=== PATIENT | female | born 1940 | race Caucasian/White ===

== ENCOUNTER 2016-11-26 14:23 | Emergency (ER) | payer OTHER ==
[~2016-11-26] VITALS: Ht 170.2 cm; Wt 68.5 kg
--- NOTE | 2016-11-26 14:25 | NUR ---
HERB FROM HOME DT NEAR SYNCOPAL EPISODE. PATIENT RECEIVED,AAO4. APPEARS IN NO APPARENT DISTRESS. RESPIRATION EVEN AND UNLABORED. SKIN IS WARM TO TOUCH AND NON DIAPHORETIC. PATIENT IS AFEBRILE. VSS. GOWNED PATIENT AND PLACED ON TELE MONITOR. IV ACCESSED TO RIGHT WRIST 18 NOTED INTACT
[2016-11-26] MEDS ORDERED: IV SET PRIMARY 1 EA INFUS.SET MC ONE (14:46)
[2016-11-26] MEDS ORDERED: IV NS 0.9% 1,000 ML ONE (14:46)
[2016-11-26] MEDS ORDERED: IV NS 0.9% 1,000 ML BAG IV ONE (15:00)
[2016-11-26 15:07] LABS: BASOPHILS % (AUTO) 0.6 % (0.0-2.0); EOSINOPHILS # (AUTO) 0.1 /CMM (0.0-0.7); EOSINOPHILS % (AUTO) 2.3 % (0.0-6.0); HEMATOCRIT 37 % (33-45); HEMOGLOBIN 12.7 g/dL (11.5-14.8); LYMPHOCYTES # (AUTO) 1.9 /CMM (0.8-4.8); LYMPHOCYTES % (AUTO) 36.6 % (20.0-44.0); MEAN CORPUSCULAR HEMOGLOBIN 32 PG (26.0-33.0); MEAN CORPUSCULAR HGB CONC 35 g/dl (31.0-36.0); MEAN CORPUSCULAR VOLUME 93 fL (82-100); MONOCYTES # (AUTO) 0.4 /CMM (0.1-1.30); NEUTROPHILS # (AUTO) 2.7 /CMM (1.8-8.9); NEUTROPHILS % (AUTO) 52.5 % (43.0-81.0); PLATELET COUNT (AUTO) 191 /CMM (150-450); RDW COEFFICIENT OF VARIATION 13.3 (11.5-15.0); RED BLOOD CELL COUNT(AUTO) 3.93 MIL/uL (4.0-5.2); WHITE BLOOD COUNT (AUTO) 5.1 K/uL (4.3-11.0)
[2016-11-26 15:17] LABS: CALCIUM, SERUM 8.9 mg/dL (8.5-10.1); CARBON DIOXIDE 29 mmol/L (21-32); CHLORIDE 108 mmol/L (98-107); CREATININE 0.9 mg/dL (0.6-1.3); GLUCOSE 128 mg/dL (74-106); POTASSIUM 3.9 mmol/L (3.5-5.1); SODIUM SERUM 142 mmol/L (136-145); UREA NITROGEN, BLOOD 24 mg/dL (7-18)
[2016-11-26 15:19] LABS: INR 0.99 (0.87-1.13); PROTHROMBIN TIME 10.3 SECS (9.5-12.7)
[2016-11-26 15:25] LABS: TROPONIN I < 0.017 ng/mL (0.00-0.056)
[2016-11-26 15:28] LABS: ALANINE AMINOTRANSFERASE 13 U/L (12-78); ALBUMIN 3.5 g/dL (3.4-5.0); ALKALINE PHOSPHATASE 62 U/L (46-116); ASPARTATE AMINOTRANSFERASE 29 U/L (15-37); BILIRUBIN,DIRECT 0.1 mg/dL (0.0-0.2); BILIRUBIN,TOTAL 0.4 mg/dL (0.2-1.0); TOTAL PROTEIN, SERUM 6.5 g/dL (6.4-8.2)
[2016-11-26 16:09] LABS: APPEARANCE,URINE Clear (CLEAR); BILIRUBIN,URINE Negative (NEGATIVE); BLOOD, URINE Negative Ery/uL (NEGATIVE); COLOR,URINE Yellow (YELLOW); KETONES,URINE Negative (NEGATIVE); LEUKOCYTE ESTERASE ,URINE Negative (NEGATIVE); NITRITE, URINE Negative (NEGATIVE); PH,URINE 7.5 (5.0-8.0); PROTEIN,URINE Trace mg/dl (NEGATIVE); UGLUCOSE Negative (NEGATIVE); UROBILINOGEN,URINE 0.2 EU/dL (0.2)
--- NOTE | 2016-11-26 16:12 | NUR ---
CALLED [facility] NOTIFIED RAIL OPERATOR THAT ER PHYSICIAN IS READY TO PRESENT CASE TO [facility] MORENO
[2016-11-26 16:19] VITALS: BP 119/65
[2016-11-26 16:44] LABS: BACTERIA,URINE None seen /HPF (None Seen); RBC,URINE 0-2 /HPF (0-2); SQUAMOUS EPITHELIAL CELL,UR Few /HPF (None Seen); WBC,URINE 0-2 /HPF (0-3)
--- NOTE | 2016-11-26 17:03 | NUR ---
RECIEVED A CALL FROM [place] ETA FOR ALS TRANSPORTATION 1750, BEING TRANSFERRED TO [facility], ACCEPTED BY DR HUANG
--- NOTE | 2016-11-26 17:16 | NUR ---
[phone]-- [facility] dtr
--- NOTE | 2016-11-26 18:07 | NUR ---
PATIENT WAS PICKED UP BY [facility]. VSS.
== END 2016-11-26 18:10 | disposition short-term general hospital (02) ==
LOC: ER 14:26
DX: R55 Syncope and collapse (principal); E11.9 Type 2 diabetes mellitus without complications; Z88.1 Allergy status to other antibiotic agents
CPT/HCPCS: 36415; 70450-TC; 71010-TC; 80048-TC; 80076-TC; 81000-TC; 84484-TC; 85025-TC; 85730-TC; A4606; J7030; Z7610

== ENCOUNTER 2016-12-24 14:24 | Emergency (ER) | payer OTHER ==
[~2016-12-24] VITALS: Ht 170.2 cm; Wt 64.0 kg
[2016-12-24 14:57] LABS: BASOPHILS % (AUTO) 0.5 % (0.0-2.0); EOSINOPHILS # (AUTO) 0.1 /CMM (0.0-0.7); EOSINOPHILS % (AUTO) 1.7 % (0.0-6.0); HEMATOCRIT 37 % (33-45); HEMOGLOBIN 12.6 g/dL (11.5-14.8); LYMPHOCYTES # (AUTO) 1.7 /CMM (0.8-4.8); LYMPHOCYTES % (AUTO) 32.9 % (20.0-44.0); MEAN CORPUSCULAR HEMOGLOBIN 32 PG (26.0-33.0); MEAN CORPUSCULAR HGB CONC 34 g/dl (31.0-36.0); MEAN CORPUSCULAR VOLUME 95 fL (82-100); MONOCYTES # (AUTO) 0.4 /CMM (0.1-1.30); MONOCYTES % (AUTO) 8.2 % (2.0-12.0); NEUTROPHILS # (AUTO) 3.1 /CMM (1.8-8.9); NEUTROPHILS % (AUTO) 56.7 % (43.0-81.0); PLATELET COUNT (AUTO) 182 /CMM (150-450); RDW COEFFICIENT OF VARIATION 13.9 (11.5-15.0); RED BLOOD CELL COUNT(AUTO) 3.93 MIL/uL (4.0-5.2); WHITE BLOOD COUNT (AUTO) 5.3 K/uL (4.3-11.0)
[2016-12-24 15:08] LABS: CARBON DIOXIDE 31 mmol/L (21-32); CHLORIDE 107 mmol/L (98-107); CREATININE 0.9 mg/dL (0.6-1.3); GLUCOSE 98 mg/dL (74-106); POTASSIUM 3.8 mmol/L (3.5-5.1); SODIUM SERUM 141 mmol/L (136-145); UREA NITROGEN, BLOOD 20 mg/dL (7-18)
[2016-12-24 15:11] LABS: INR 0.94 (0.87-1.13); PROTHROMBIN TIME 9.8 SECS (9.5-12.7)
[2016-12-24 15:13] LABS: ALANINE AMINOTRANSFERASE 12 U/L (12-78); ALBUMIN 3.3 g/dL (3.4-5.0); ALKALINE PHOSPHATASE 66 U/L (46-116); ASPARTATE AMINOTRANSFERASE 22 U/L (15-37); BILIRUBIN,DIRECT 0.1 mg/dL (0.0-0.2); BILIRUBIN,TOTAL 0.4 mg/dL (0.2-1.0); TOTAL PROTEIN, SERUM 6.3 g/dL (6.4-8.2)
[2016-12-24 15:15] LABS: TROPONIN I < 0.017 ng/mL (0.00-0.056)
--- NOTE | 2016-12-24 15:30 | NUR ---
PATIENT BIB RA D/T PATIENT C/O PALPITATIONS AND BEING LIGHTHEADED. PER RA, PATIENT SEEN TO GO IN AND OUT OF A-FIB. PATIENT IS A/OX 4. BREATHING EVEN AND UNLABORED. STATING SHE FEELS WEAK, BUT PATIENT'S VITALS ARE STABLE. SAFETY AND COMFORT MEASURES IN PLACE, AWAITING MD ORDERS.
[2016-12-24] MEDS ORDERED: ASPIRIN 81 MG TAB.CHEW PO ONE (16:30)
[2016-12-24] MEDS ORDERED: IV NS 0.9% 500 ML BAG IV ONE (16:30)
[2016-12-24] MEDS ORDERED: ASPIRIN 81 MG TAB.CHEW ONE (16:42)
--- NOTE | 2016-12-24 16:50 | NUR ---
PER PATIENT, SHE HAS TAKEN ASPIRIN 325MG THIS AM. INFORMED AND HAS CANCELLED ORDERD FOR ASPIRIN 162MG.
--- NOTE | 2016-12-24 17:05 | NUR ---
PT GOING TO [facility]. NUMBER TO CALL REPORT [phone] ACCEPTING MD DR CONTRERAS. ALS ETA 1 HOUR.
--- NOTE | 2016-12-24 17:36 | NUR ---
REPORT GIVEN TO DANIKA CASTELLANOS AT [facility] FOR TRANSFER.
[2016-12-24 17:51] VITALS: BP 137/74
--- NOTE | 2016-12-24 18:05 | NUR ---
EMT AT BEDSIDE, REPORT GIVEN. PATIENT TRANSFERRED TO [facility] IN STABLE CONDITION.
== END 2016-12-24 18:10 | disposition short-term general hospital (02) ==
LOC: ER 14:26
DX: I49.9 Cardiac arrhythmia, unspecified (principal); R79.89 Other specified abnormal findings of blood chemistry; E11.9 Type 2 diabetes mellitus without complications; E78.00 Pure hypercholesterolemia, unspecified; I48.91 Unspecified atrial fibrillation; I70.0 Atherosclerosis of aorta; Z79.82 Long term (current) use of aspirin
CPT/HCPCS: 36415; 71010; 80048; 80076; 84484; 85025; 85730; 93005; 99285; A4606; J7040 ×2; Z7610

== ENCOUNTER 2021-06-15 17:43 | Inpatient (IN) | payer OTHER ==
[~2021-06-15] VITALS: Ht 170.2 cm; Wt 64.9 kg
--- NOTE | 2021-06-15 17:55 | NUR ---
PT BIBRA FROM HOME TO ER BED 16 C/O L HIP PAIN S/P SLIP AND FALL AT HOME. PT DENIES HEAD TRAUMA. + SHORTENING NOTED UPON ARRIVAL. 100MCG FENTANYL GIVEN AEROBICS INSTRUCTOR. PT GOWNED AND PLACED ON MONITOR. AWAITING MD WRIGHT.
--- NOTE | 2021-06-15 18:05 | NUR ---
DR BELTRE AT BEDSIDE FOR EVAL.
--- NOTE | 2021-06-15 18:08 | NUR ---
RADIOLOGY AT BEDSIDE FOR L HIP AND CHEST XRAY.
--- NOTE | 2021-06-15 18:21 | NUR ---
SUPERVISOR RIPRAP PLACING AT BEDSIDE FOR BLOOD DRAW.
--- NOTE | 2021-06-15 18:23 | NUR ---
CALLED [facility] AND THEY WERE NOTIFIED OF PT STATUS. WAITING FOR CALL BACK TO SPEAK TO DR. BELTRE
--- NOTE | 2021-06-15 18:29 | NUR ---
DR BELTRE TALKING TO [facility] MORENO.
[2021-06-15 18:53] LABS: CALCIUM, SERUM 8.8 mg/dL (8.5-10.1)
[2021-06-15] MEDS ORDERED: ONDANSETRON HCL/PF 4 MG/2 ML VIAL IVP PRN (19:00)
[2021-06-15] MEDS ORDERED: Z GUARD REMEDY 4 OZ OINT TP PRN (19:00)
[2021-06-15] MEDS ORDERED: TEMAZEPAM 15 MG CAPSULE PO PRN (19:00)
[2021-06-15] MEDS ORDERED: ENOXAPARIN SODIUM 40 MG/0.4 ML DISP.SYRIN SQ SCH (19:00)
[2021-06-15] MEDS ORDERED: LORAZEPAM INJ 2 MG/ML VIAL IV PRN (19:00)
[2021-06-15] MEDS ORDERED: MAGNESIUM HYDROXIDE 30 ML UDC PO PRN (19:00)
--- NOTE | 2021-06-15 19:20 | NUR ---
soledad sanders approved to give morphine 4mg iv x 1 stat.
[2021-06-15] MEDS ORDERED: MORPHINE SULFATE INJ 4 MG/ML DISP.SYRIN ONE (19:23)
--- NOTE | 2021-06-15 19:30 | NUR ---
ORTHO MD AT BEDSIDE W/ PATIENT
[2021-06-15] MEDS: MORPHINE SULFATE INJ 2 MG/ML DISP.SYRIN IV PRN (19:50)
[2021-06-15 19:58] LABS: BASOPHILS % (AUTO) 0.7 % (0.0-2.0); EOSINOPHILS % (AUTO) 1.4 % (0.0-6.0); HEMATOCRIT 38 % (33-45); HEMOGLOBIN 12.8 g/dL (11.5-14.8); LYMPHOCYTES # (AUTO) 2.3 K/uL (0.8-4.8); LYMPHOCYTES % (AUTO) 40.4 % (20.0-44.0); MEAN CORPUSCULAR HGB CONC 34 g/dl (31.0-36.0); MEAN CORPUSCULAR VOLUME 98 fL (82-100); MONOCYTES # (AUTO) 0.4 K/uL (0.1-1.30); MONOCYTES % (AUTO) 6.2 % (2.0-12.0); NEUTROPHILS % (AUTO) 51.3 % (43.0-81.0); PLATELET COUNT (AUTO) 186 K/uL (150-450); RED BLOOD CELL COUNT(AUTO) 3.83 MIL/uL (4.0-5.2); WHITE BLOOD COUNT (AUTO) 5.8 K/uL (4.3-11.0)
--- NOTE | 2021-06-15 20:42 | NUR ---
INSERTED 16FR F/C WITH URINE OUTPUT; PATENT AND INTACT. COLLECTED ANTIGEN SWAB AND SENT TO LAB
--- NOTE | 2021-06-15 20:50 | NUR ---
REPORT RSUTY JAVIER RN FOR JOEL. DONT SEND PT UNTIL UNIT CHARGE NURSE CALLS.
[2021-06-15] MEDS ORDERED: CARB-36 PO (21:06)
[2021-06-15] MEDS ORDERED: METF-440 PO (21:09)
[2021-06-15] MEDS ORDERED: SIMV10TA98 PO (21:09)
[2021-06-15] MEDS ORDERED: TERB250T52 PO (21:09)
[2021-06-15] MEDS ORDERED: PANTOPRAZOLE 40 MG VIAL ONE (22:19)
[2021-06-15] MEDS: PANTOPRAZOLE 40 MG VIAL IV SCH (22:33)
[2021-06-15] MEDS: IV NS 0.9% 1,000 ML IV PRN (22:33)
--- NOTE | 2021-06-15 22:36 | NUR ---
PT SIGNED CONSENT FOR LEFT HIP SURGICAL STABILIZATION WITH INTERNAL FIXATION, BLOOD TRANSFUSION, AND ANESTHESIA; VERBALIZED UNDERSTANDING. NPO ORDERS IN PLACE
[2021-06-16] VITALS (10 sets, daily range): BP systolic 107–149; BP diastolic 47–85
--- NOTE | 2021-06-16 00:28 | NUR ---
REPORT GIVEN TO 3 WEST CHARGE NURSE
--- NOTE | 2021-06-16 01:08 | NUR ---
patient transferred, vss, no acute distress noted.
--- NOTE | 2021-06-16 01:10 | NUR ---
MS RN RECEIVING NOTE PATIENT RECEIVED FROM ER VIA GURNEY. PATIENT IN STABLE CONDITION. A/OX3-4. IV RAC #20 PATENT. PATIENT WAS ORIENTED TO THE UNIT. BELONGINGS ACCOUNTED FOR AND LOGGED IN TO BELONGING'S SHEET. VSL WNL. PATIENT'S PAIN CONTROLLED BY MD ORDERS IN eMAR. SAFETY MEASURES IN PLACE: BED AT LOWEST POSITION, RAILS UP X2, CALL LARA WITHIN REACH.
[2021-06-16] MEDS: MORPHINE SULFATE INJ 2 MG/ML DISP.SYRIN IV PRN ×3 (01:51→21:34)
[2021-06-16 06:37] LABS: BASOPHILS % (AUTO) 0.3 % (0.0-2.0); EOSINOPHILS % (AUTO) 0.1 % (0.0-6.0); HEMATOCRIT 33 % (33-45); HEMOGLOBIN 11.3 g/dL (11.5-14.8); LYMPHOCYTES # (AUTO) 1.7 K/uL (0.8-4.8); LYMPHOCYTES % (AUTO) 19.6 % (20.0-44.0); MEAN CORPUSCULAR HGB CONC 34 g/dl (31.0-36.0); MEAN CORPUSCULAR VOLUME 100 fL (82-100); MONOCYTES # (AUTO) 0.7 K/uL (0.1-1.30); MONOCYTES % (AUTO) 7.7 % (2.0-12.0); NEUTROPHILS # (AUTO) 6.4 K/uL (1.8-8.9); NEUTROPHILS % (AUTO) 72.3 % (43.0-81.0); PLATELET COUNT (AUTO) 166 K/uL (150-450); RED BLOOD CELL COUNT(AUTO) 3.34 MIL/uL (4.0-5.2); WHITE BLOOD COUNT (AUTO) 8.8 K/uL (4.3-11.0)
[2021-06-16 07:12] LABS: CALCIUM, SERUM 8.4 mg/dL (8.5-10.1); CREATININE 0.9 mg/dL (0.6-1.3); MAGNESIUM 2.1 mg/dL (1.8-2.4); PHOSPHORUS 3.5 mg/dL (2.5-4.9); POTASSIUM 4.4 mmol/L (3.5-5.1)
[2021-06-16 07:15] LABS: CHOLESTEROL 170 mg/dL (<200); HDL CHOLESTEROL 89 mg/dL (40-60); LDL 69 mg/dL (0-99); TRIGLYCERIDES 35 mg/dL (30-150)
--- NOTE | 2021-06-16 07:30 | NUR ---
MS RN OPENING NOTES RECEIVED PATIENT ON BED, AWAKE, VERBALLY RESPONSIVE, NO SIGNS OF ACUTE DISTRESS NOTED. ON ROOM AIR, TOLERATING WELL, NO SOB, BREATHING EVEN AND UNLABORED. WITH IV ACCESS ON RAC #20G, WITH NS @75 ML/HR RUNNING. PATIENT ON NPO FOR SCHEDULED SURGERY LATER. COMFORT AND SAFETY MEASURES MAINTAINED. WILL CONTINUE TO MONITOR.
--- NOTE | 2021-06-16 07:59 | NUR ---
MS CLOSING NOTE PATIENT AWAKE IN BED. A/OX3-4. NO S/S OF DISTRESS, BREATHING SYMMETRICAL. SAFETY MEASURES IN PLACE: BED AT LOWEST LEVEL, RAILS UP X2, CALL LARA WITHIN REACH. WILL ENDORSE TO NEXT SHIFT FOR JOEL.
[2021-06-16 08:29] LABS: THYROID STIMULATING HORMONE 1.845 uIU/mL (0.358-3.74)
[2021-06-16] MEDS: PANTOPRAZOLE 40 MG VIAL IV SCH (09:04)
[2021-06-16] MEDS ORDERED: DEXTROSE 50%-WATER 50 ML DISP.SYRIN IV PRN (09:30)
[2021-06-16] MEDS: TERBINAFINE HCL 250 MG TABLET PO SCH (10:00)
[2021-06-16] MEDS: CARBIDOPA/LEVODOPA 25/100 MG 1 UDTAB PO SCH ×4 (10:34→21:21)
[2021-06-16] MEDS ORDERED: ANESTHESIA TRAY IN PYXIS 1 EA TRAY MC ONE (10:57)
[2021-06-16] MEDS: BLOOD SUGAR DIAGNOSTIC 1 EACH STRIP IN SCH ×3 (11:32→21:21)
[2021-06-16] MEDS ORDERED: BUPIVACAINE 0.25% 75 MG/30 ML VIAL ONE (12:19)
[2021-06-16] MEDS ORDERED: VANCOMYCIN 1 GM in IV D5W 250ml IV ONE (12:30)
[2021-06-16] MEDS ORDERED: TRANEXAMIC ACID 1,000 MG in IV NS 0.9% 100 ML IV ONE (12:30)
--- NOTE | 2021-06-16 12:30 | NUR ---
RN NOTES PATIENT PICKED UP FOR SURGERY, IN STABLE CONDITION.
[2021-06-16] MEDS ORDERED: HYDROMORPHONE INJ 2 MG/ML DISP.SYRIN ONE (12:43)
[2021-06-16] MEDS ORDERED: ROCURONIUM BROMIDE 50 MG/5 ML ONE (13:20)
[2021-06-16] MEDS ORDERED: BUPIVACAINE MPF W/EPI 0.25% 30 ML VIAL ONE (14:01)
[2021-06-16] MEDS ORDERED: LIDOCAINE 1% INJ 50 ML MDV IJ ONE (14:02)
--- NOTE | 2021-06-16 17:05 | NUR ---
RN NOTES PATIENT BACK FROM RECOVERY ROOM, TRANSPORTED VIA BED ACCOMPANIED BY EMANUEL PONCE. PATIENT IN STABLE CONDITION VITAL SIGNS FOLLOWS: 141/67, 98.2, 69, 16, SPO2 100% ON O2 @2LPM. DENIES ANY PAIN AT THIS TIME. NOTED WITH DRESSING ON 2 SURGICAL SITE ON LEFT HIP. WILL CONTINUE TO MONITOR.
[2021-06-16] MEDS: INSULIN REGULAR, HUMAN 100 UNIT/ML 3 ML VIAL SQ PRN ×2 (17:21→22:07)
--- NOTE | 2021-06-16 18:58 | NUR ---
MS RN CLOSING NOTES PATIENT RESTING ON BED, AWAKE. DAUGHTER AT BEDSIDE. NO SIGNS OF ACUTE DISTRESS NOTED. ON ROOM AIR, TOLERATING WELL, NO SOB, BREATHING EVEN AND UNLABORED. WITH IV ACCESS ON RAC #20G, WITH NS @75 ML/HR RUNNING. S/P LEFT HIP IM NAILING WITH 2 SURGICAL SITE ON LEFT HIP WITH DRESSING C/D/I. NO C/O PAIN AT THIS TIME. COMFORT AND SAFETY MEASURES MAINTAINED. BED LOCKED AND IN LOWEST POSITION, SR UP X2, CALL LIGHT PLACED WITHIN EASY REACH. WILL ENDORSED TO NEXT SHIFT.
--- NOTE | 2021-06-16 19:59 | NUR ---
MS RN NOTES VANCO 1GM GIVEN IN OR
[2021-06-16] MEDS: SIMVASTATIN 10 MG TABLET PO SCH (21:21)
[2021-06-17] MEDS: MORPHINE SULFATE INJ 2 MG/ML DISP.SYRIN IV PRN (04:29)
[2021-06-17] MEDS: IV NS 0.9% 1,000 ML IV PRN (05:08)
[2021-06-17 05:54] LABS: BASOPHILS % (AUTO) 0.3 % (0.0-2.0); EOSINOPHILS % (AUTO) 0.4 % (0.0-6.0); HEMATOCRIT 25 % (33-45); HEMOGLOBIN 8.5 g/dL (11.5-14.8); LYMPHOCYTES # (AUTO) 1.3 K/uL (0.8-4.8); LYMPHOCYTES % (AUTO) 20.9 % (20.0-44.0); MEAN CORPUSCULAR HGB CONC 34 g/dl (31.0-36.0); MEAN CORPUSCULAR VOLUME 98 fL (82-100); MONOCYTES # (AUTO) 0.6 K/uL (0.1-1.30); NEUTROPHILS # (AUTO) 4.3 K/uL (1.8-8.9); NEUTROPHILS % (AUTO) 69.4 % (43.0-81.0); PLATELET COUNT (AUTO) 141 K/uL (150-450); WHITE BLOOD COUNT (AUTO) 6.1 K/uL (4.3-11.0)
--- NOTE | 2021-06-17 06:37 | NUR ---
MS RN NOTES AWAKE & RESPONSIVE. NOT IN ANY DISTRESS. NO SOB NOTED. DENIES ANY PAIN OR DISCOMFORT AT THIS TIME. WITH IVF INFUSING WELL. AM CARE DONE. MONITORED ACCORDINGLY. CALL LIGHT WITHIN REACH. BED IN LOWEST POSITION. SR UP X 3 WITH BED ALARM ON FOR SAFETY. WILL ENDORSE TO NEXT SHIFT. Addendum: 06/17/21 at 0639 by VIVIAN QUICK RN DRESSING @ [facility] C/D/I
[2021-06-17 06:47] LABS: ALBUMIN 2.7 g/dL (3.4-5.0); BILIRUBIN,TOTAL 0.5 mg/dL (0.2-1.0); CALCIUM, SERUM 8.3 mg/dL (8.5-10.1); CREATININE 0.9 mg/dL (0.6-1.3); PHOSPHORUS 2.7 mg/dL (2.5-4.9); POTASSIUM 4.1 mmol/L (3.5-5.1); TOTAL PROTEIN, SERUM 5.5 g/dL (6.4-8.2)
[2021-06-17] MEDS: BLOOD SUGAR DIAGNOSTIC 1 EACH STRIP IN SCH ×4 (06:52→22:00)
--- NOTE | 2021-06-17 07:43 | NUR ---
MS EMANUEL OPENING NOTES RECEIVED PT AWAKE IN BED, VERBALLY RESPONSIVE A/Ox3. Pt IS ON ROOM AIR AND TOLERATING WELL, NO SOB AT THIS TIME, BREATHING IS EVEN AND UNLABORED. NO COMPLAINTS OF PAIN AND NO SIGNS OF DISCOMFORT AT THIS TIME. Pt HAS IV ACCESS ON R AC 20g WITH NS @75 ML/HR RUNNING. SAFETY MEASURES ARE IN PLACE: BED IS LOCKED AND IN LOWEST POSITION, SIDE RAILS UPx3, CALL LIGHT AND BED SIDE TABLE ARE WITHIN REACH. WILL CONTINUE TO MONITOR. Addendum: 06/17/21 at 0813 by WILLIAM HERNÁNDEZ RN RIGHT HAND IV
[2021-06-17 08:00] VITALS: BP 117/83
[2021-06-17] MEDS: CARBIDOPA/LEVODOPA 25/100 MG 1 UDTAB PO SCH ×4 (08:05→22:27)
[2021-06-17] MEDS: PANTOPRAZOLE 40 MG VIAL IV SCH (10:11)
[2021-06-17] MEDS: TERBINAFINE HCL 250 MG TABLET PO SCH (10:13)
[2021-06-17 11:10] LABS: BASOPHILS % (AUTO) 0.4 % (0.0-2.0); EOSINOPHILS % (AUTO) 0.6 % (0.0-6.0); HEMATOCRIT 25 % (33-45); HEMOGLOBIN 8.3 g/dL (11.5-14.8); LYMPHOCYTES # (AUTO) 1.1 K/uL (0.8-4.8); LYMPHOCYTES % (AUTO) 18.4 % (20.0-44.0); MEAN CORPUSCULAR HGB CONC 34 g/dl (31.0-36.0); MEAN CORPUSCULAR VOLUME 99 fL (82-100); MONOCYTES # (AUTO) 0.6 K/uL (0.1-1.30); MONOCYTES % (AUTO) 10.4 % (2.0-12.0); NEUTROPHILS # (AUTO) 4.1 K/uL (1.8-8.9); NEUTROPHILS % (AUTO) 70.2 % (43.0-81.0); PLATELET COUNT (AUTO) 141 K/uL (150-450); RED BLOOD CELL COUNT(AUTO) 2.47 MIL/uL (4.0-5.2); WHITE BLOOD COUNT (AUTO) 5.8 K/uL (4.3-11.0)
[2021-06-17] MEDS: GLUCERNA SHAKE 237 ML CAN PO SCH ×2 (12:13→17:22)
[2021-06-17] MEDS: ZINC SULFATE 220 MG CAPSULE PO SCH (12:14)
[2021-06-17] MEDS ORDERED: CEFAZOLIN 1 GM VIAL IM SCH (13:00)
[2021-06-17] MEDS ORDERED: VANCOMYCIN 1.25 GM in IV D5W 250 ML IV ONE ×2 (13:00→13:30)
[2021-06-17] MEDS: CEFAZOLIN 2 GM in IV D5W 100 ML IV SCH ×2 (13:12→22:27)
[2021-06-17] MEDS: CALCIUM CITRATE(CITRACAL) /VITAMIN D 1 TAB TABLET PO SCH (13:13)
[2021-06-17] MEDS ORDERED: EPOETIN ALFA (10,000 UNIT) 10,000 UNIT/ML VIAL IV ONE (13:30)
[2021-06-17 16:00] VITALS: BP 108/53
[2021-06-17] MEDS: SOD FERRIC GLUC 125 MG in IV NS 0.9% 100 ML IV SCH (16:58)
[2021-06-17 17:30] LABS: HEMOGLOBIN 7.8 g/dL (11.5-14.8)
[2021-06-17 18:00] LABS: BILIRUBIN,URINE NEGATIVE (NEGATIVE); COLOR,URINE YELLOW (YELLOW); LEUKOCYTE ESTERASE ,URINE NEGATIVE (NEGATIVE); NITRITE, URINE NEGATIVE (NEGATIVE); PH,URINE 5.5 (5.0-8.0); PROTEIN,URINE NEGATIVE (NEGATIVE); UGLUCOSE NEGATIVE (NEGATIVE); UROBILINOGEN,URINE 0.2 EU/dL (0.2)
--- NOTE | 2021-06-17 18:13 | NUR ---
RN NOTES: HGB & HCT PER JACKY QUINONES, CALL HIM WHEN H&H RESULTS FROM LAB ARE UP AT 2000 ON 06/17/21. IF BELOW 7.5, TRANSFUSION NEEDS TO BE DONE. HOLD LOVENOX TEMPORARILY FOR THIS Pt.
[2021-06-17 18:40] LABS: BACTERIA,URINE None seen /HPF (None Seen); SQUAMOUS EPITHELIAL CELL,UR 0-2 /HPF (None Seen); URIC ACID CRYSTALS,URINE Few /HPF (None Seen); WBC,URINE 0-2 /HPF (0-3)
[2021-06-17] MEDS: INSULIN REGULAR, HUMAN 100 UNIT/ML 3 ML VIAL SQ PRN ×2 (18:45→22:23)
[2021-06-17] MEDS ORDERED: ENOXAPARIN SODIUM 40 MG/0.4 ML DISP.SYRIN SQ SCH (19:00)
--- NOTE | 2021-06-17 19:27 | NUR ---
MS RN CLOSING NOTES Pt IS RESTING IN BED A/O x4. NO SIGNS OF ACUTE DISTRESS NOTED. ON ROOM AIR AND TOLERATING WELL, NO SOB AT THIS TIME, BREATHING IS EVEN AND UNLABORED. IV ACCESS ON R HAND IS PATENT AND INTACT. S/P LEFT HIP IM NAILING WITH 2 SURGICAL SITE ON LEFT HIP WITH DRESSING C/D/I. NO C/O PAIN AT THIS TIME. COMFORT AND SAFETY MEASURES MAINTAINED. BED IS LOCKED AND IN LOWEST POSITION, SIDE RAILS UP X3, CALL LIGHT AND BEDSIDE TABLE ARE WITHIN REACH. WILL ENDORSE TO ONCOMING SHIFT.
[2021-06-17 20:00] VITALS: BP 117/56
[2021-06-17 20:58] LABS: BASOPHILS % (AUTO) 0.4 % (0.0-2.0); EOSINOPHILS % (AUTO) 0.7 % (0.0-6.0); HEMATOCRIT 23 % (33-45); HEMOGLOBIN 7.6 g/dL (11.5-14.8); LYMPHOCYTES # (AUTO) 1.5 K/uL (0.8-4.8); LYMPHOCYTES % (AUTO) 26.2 % (20.0-44.0); MEAN CORPUSCULAR HGB CONC 34 g/dl (31.0-36.0); MEAN CORPUSCULAR VOLUME 100 fL (82-100); MONOCYTES # (AUTO) 0.6 K/uL (0.1-1.30); MONOCYTES % (AUTO) 10.1 % (2.0-12.0); NEUTROPHILS # (AUTO) 3.7 K/uL (1.8-8.9); NEUTROPHILS % (AUTO) 62.6 % (43.0-81.0); PLATELET COUNT (AUTO) 132 K/uL (150-450); RED BLOOD CELL COUNT(AUTO) 2.28 MIL/uL (4.0-5.2); WHITE BLOOD COUNT (AUTO) 5.9 K/uL (4.3-11.0)
--- NOTE | 2021-06-17 21:16 | NUR ---
RECEIVED A CALL FROM DR MARK AND INFORMED LATEST H/H OF 7.6 AND 23, AND LR AT 75 ML/HR STARTED, NO ORDERS MADE.
--- NOTE | 2021-06-17 22:24 | NUR ---
BLOOD SUGAR SWYENXE=846, NO INSULIN COVERAGE GIVEN.
[2021-06-17] MEDS: SIMVASTATIN 10 MG TABLET PO SCH (22:27)
[2021-06-17] MEDS: IV LR 1000 ML 1,000 ML IV PRN (22:27)
[2021-06-18] VITALS (10 sets, daily range): BP systolic 95–124; BP diastolic 41–84
[2021-06-18 00:01] LABS: EOSINOPHILS % (MANUAL) 1 % (0-4); LYMPHOCYTES % (MANUAL) 28 % (16-48); MONOCYTES % (MANUAL) 7 % (0-11.0); NEUTROPHILS % (MANUAL) 64 (42-76)
[2021-06-18] MEDS: MORPHINE SULFATE INJ 2 MG/ML DISP.SYRIN IV PRN ×3 (00:54→16:11)
[2021-06-18] MEDS: CEFAZOLIN 2 GM in IV D5W 100 ML IV SCH (05:51)
[2021-06-18] MEDS: INSULIN REGULAR, HUMAN 100 UNIT/ML 3 ML VIAL SQ PRN ×3 (06:50→21:51)
[2021-06-18] MEDS: BLOOD SUGAR DIAGNOSTIC 1 EACH STRIP IN SCH ×4 (06:50→21:52)
--- NOTE | 2021-06-18 06:51 | NUR ---
blood sugar checked= 120, no insulin given.
[2021-06-18 07:14] LABS: CALCIUM, SERUM 7.7 mg/dL (8.5-10.1); CREATININE 0.8 mg/dL (0.6-1.3); POTASSIUM 3.7 mmol/L (3.5-5.1)
[2021-06-18 07:30] LABS: BASOPHILS % (AUTO) 0.5 % (0.0-2.0); EOSINOPHILS % (AUTO) 0.9 % (0.0-6.0); HEMATOCRIT 21 % (33-45); HEMOGLOBIN 7.3 g/dL (11.5-14.8); LYMPHOCYTES # (AUTO) 1.3 K/uL (0.8-4.8); LYMPHOCYTES % (AUTO) 21.2 % (20.0-44.0); MEAN CORPUSCULAR HGB CONC 34 g/dl (31.0-36.0); MEAN CORPUSCULAR VOLUME 99 fL (82-100); MONOCYTES # (AUTO) 0.7 K/uL (0.1-1.30); MONOCYTES % (AUTO) 11.4 % (2.0-12.0); PLATELET COUNT (AUTO) 130 K/uL (150-450); RED BLOOD CELL COUNT(AUTO) 2.16 MIL/uL (4.0-5.2)
--- NOTE | 2021-06-18 07:30 | NUR ---
MS RN OPENING NOTES RECEIVED PT AWAKE IN BED, VERBALLY RESPONSIVE A/Ox4. Pt IS ON ROOM AIR AND TOLERATING WELL, NO SOB AT THIS TIME, BREATHING IS EVEN AND UNLABORED. NO COMPLAINTS OF PAIN AND NO SIGNS OF DISCOMFORT AT THIS TIME. Pt HAS IV ACCESS ON R AC 20g WITH NS @75 ML/HR AND LEFT HAND #20. ON MULLINS CATHETER. S/P LEFT HIP SURGERY. SAFETY MEASURES ARE IN PLACE: BED IS LOCKED AND IN LOWEST POSITION, SIDE RAILS UPx3, CALL LIGHT AND BED SIDE TABLE ARE WITHIN REACH. WILL CONTINUE TO MONITOR.
[2021-06-18] MEDS: CARBIDOPA/LEVODOPA 25/100 MG 1 UDTAB PO SCH ×4 (07:55→21:51)
[2021-06-18] MEDS: PANTOPRAZOLE 40 MG TABLET.DR PO SCH (07:55)
[2021-06-18] MEDS: GLUCERNA SHAKE 237 ML CAN PO SCH ×3 (08:47→17:53)
[2021-06-18] MEDS: DOCUSATE SODIUM LIQ 100 MG/10 ML UDC NG SCH (09:05)
[2021-06-18] MEDS: TERBINAFINE HCL 250 MG TABLET PO SCH (09:05)
[2021-06-18] MEDS: ZINC SULFATE 220 MG CAPSULE PO SCH (09:05)
[2021-06-18] MEDS: CALCIUM CITRATE(CITRACAL) /VITAMIN D 1 TAB TABLET PO SCH (09:05)
--- NOTE | 2021-06-18 13:15 | NUR ---
RN NOTES STARTED BLOOD TRANSFUSION AT 1315 VITAL SIGNS 95/56, P=89, RR=18, T=98.4
--- NOTE | 2021-06-18 16:47 | NUR ---
RN NOTES ENDED BLOOD TRANSFUSION AT 1647 PM . PATIENT TOLERATED WELL. NO ADVERSE REACTION NOTED. VITAL SIGNS, JN=6498/44, P=92, RR=19, O2=95%RA.
[2021-06-18] MEDS: SOD FERRIC GLUC 125 MG in IV NS 0.9% 100 ML IV SCH (17:03)
--- NOTE | 2021-06-18 18:00 | NUR ---
RN NOTES DC MULLINS CATHETER PER DOCTOR ORDER. REMOVED RIGHT SIDE IV ACCESS FOR NOT BEING FLUSHING WELL.NO BLEEDING NOTED.COVERED WITH DRESSING.
--- NOTE | 2021-06-18 19:00 | NUR ---
MS RN CLOSING NOTES PT AWAKE IN BED, VERBALLY RESPONSIVE A/Ox4. Pt IS ON ROOM AIR AND TOLERATING WELL, NO SOB AT THIS TIME, BREATHING IS EVEN AND UNLABORED. NO COMPLAINTS OF PAIN AND NO SIGNS OF DISCOMFORT AT THIS TIME. Pt HAS IV ACCESS ON LEFT HAND #20 INTACT AND PATENT. S/P LEFT HIP SURGERY. SAFETY MEASURES ARE IN PLACE: BED IS LOCKED AND IN LOWEST POSITION, SIDE RAILS UPx2, CALL LIGHT AND BED SIDE TABLE ARE WITHIN REACH. WILL ENDORSE TO INCOMING NURSE FOR JOEL.
--- NOTE | 2021-06-18 19:15 | NUR ---
RECEIVED PATIENT IN BED, AWAKE, NO S/S OF DISTRESS NOTED. NO COMPLAIN OF PAIN. CALL LIGHT WITHIN REACH. BED ALARM ON. BED IN LOWEST AND LOCKED POSITION. WITH POST OP DRESSING CLEAN, DRY AND INTACT. MULLINS CATH REMOVED BY EMANUEL FAROOQ AT 1935.
[2021-06-18] MEDS: IV LR 1000 ML 1,000 ML IV PRN (19:43)
--- NOTE | 2021-06-18 20:57 | NUR ---
PATIENT VOIDED ALREADY, CLEANED PATIENT.PATIENT TOLERATED. BED ALARM ON. BED IN LOWEST AND LOCKED POSITION. TURNED PATIENT TO THE RIGHT SIDE WITH PILLOWS. WITH SCD ON THE BOTH LEGS ON. WITH ELASTIC STOCKINGS ON BOTH LEGS, SKIN ASSESSMENTS DONE AND CIRCULATIONS, WNL AND NO SKIN BREAKDOWN.
[2021-06-18] MEDS: SIMVASTATIN 10 MG TABLET PO SCH (21:51)
[2021-06-19] MEDS: INSULIN REGULAR, HUMAN 100 UNIT/ML 3 ML VIAL SQ PRN ×4 (06:38→22:22)
[2021-06-19] MEDS: BLOOD SUGAR DIAGNOSTIC 1 EACH STRIP IN SCH ×4 (06:39→22:23)
--- NOTE | 2021-06-19 06:39 | NUR ---
blood sugar bwdnfhj=047, no insulin given needed.
[2021-06-19 07:12] LABS: BASOPHILS % (AUTO) 0.4 % (0.0-2.0); EOSINOPHILS % (AUTO) 1.5 % (0.0-6.0); HEMATOCRIT 27 % (33-45); HEMOGLOBIN 9.3 g/dL (11.5-14.8); LYMPHOCYTES # (AUTO) 1.6 K/uL (0.8-4.8); LYMPHOCYTES % (AUTO) 22.2 % (20.0-44.0); MEAN CORPUSCULAR HGB CONC 34 g/dl (31.0-36.0); MEAN CORPUSCULAR VOLUME 98 fL (82-100); MONOCYTES # (AUTO) 0.7 K/uL (0.1-1.30); MONOCYTES % (AUTO) 10.2 % (2.0-12.0); NEUTROPHILS # (AUTO) 4.8 K/uL (1.8-8.9); NEUTROPHILS % (AUTO) 65.7 % (43.0-81.0); PLATELET COUNT (AUTO) 153 K/uL (150-450); RED BLOOD CELL COUNT(AUTO) 2.81 MIL/uL (4.0-5.2); WHITE BLOOD COUNT (AUTO) 7.2 K/uL (4.3-11.0)
--- NOTE | 2021-06-19 07:23 | NUR ---
MS RN OPENING NOTES RECEIVED PT AWAKE IN BED IN NO ACUTE SIGNS OF DISTRESS. HOB ELEVATED. A/O X3-4. ABLE TO MAKE NEEDS KNOWN, DENIES PAIN OR ANY DISCOMFORTS AT THIS TIME. ON ROOM AIR, TOLERATING WELL, BREATHING IS EVEN AND UNLABORED. IV ACCESS ON LAC G#20 INTACT WITH IVF OF NS @75 ML/HR INFUSING WELL, NO S/S OF INFILTRATION AT SITE . SAFETY MEASURES ARE IN PLACE: BED IS LOCKED AND IN LOWEST POSITION, SIDE RAILS UPx2, CALL LIGHT AND BED SIDE TABLE WITHIN EASY REACH OF PT. WILL CONTINUE TO MONITOR.
[2021-06-19] MEDS: CARBIDOPA/LEVODOPA 25/100 MG 1 UDTAB PO SCH ×4 (07:29→21:38)
[2021-06-19] MEDS: PANTOPRAZOLE 40 MG TABLET.DR PO SCH (07:30)
[2021-06-19 07:33] LABS: CREATININE 0.7 mg/dL (0.6-1.3); POTASSIUM 3.8 mmol/L (3.5-5.1)
[2021-06-19 08:00] VITALS: BP 145/77
[2021-06-19] MEDS: MORPHINE SULFATE INJ 2 MG/ML DISP.SYRIN IV PRN ×4 (08:09→22:35)
--- NOTE | 2021-06-19 08:11 | NUR ---
RN NOTES PT C/O LEFT HIP PAIN, 10/10 SCALE, PRN MORPHINE 4MG IVP ADMINISTERED AT 0809. WILL CONTINUE TO MONITOR AND REASSESS PT.
[2021-06-19] MEDS: GLUCERNA SHAKE 237 ML CAN PO SCH ×3 (08:13→17:24)
[2021-06-19] MEDS: CALCIUM CITRATE(CITRACAL) /VITAMIN D 1 TAB TABLET PO SCH (09:29)
[2021-06-19] MEDS: DOCUSATE SODIUM LIQ 100 MG/10 ML UDC NG SCH (09:29)
[2021-06-19] MEDS: ZINC SULFATE 220 MG CAPSULE PO SCH (09:29)
[2021-06-19] MEDS: TERBINAFINE HCL 250 MG TABLET PO SCH (09:30)
[2021-06-19] MEDS: IV LR 1000 ML 1,000 ML IV PRN (10:53)
--- NOTE | 2021-06-19 12:23 | NUR ---
RN NOTES PT C/O ACHING AND THROBBING LEFT HIP PAIN, 9/10 SCALE, PRN MORPHINE 4MG IVP ADMINISTERED AT 1221. WILL CONTINUE TO MONITOR AND REASSESS PT
[2021-06-19] MEDS: SOD FERRIC GLUC 125 MG in IV NS 0.9% 100 ML IV SCH (14:25)
[2021-06-19 16:00] VITALS: BP 127/72
--- NOTE | 2021-06-19 18:38 | NUR ---
MS RN CLOSING NOTES PT IN BED AWAKE AT THIS TIME WITH DAUGHTER AT BEDSIDE. A/O X3-4. ABLE TO MAKE NEEDS KNOWN. ON ROOM AIR, TOLERATING WELL, BREATHING IS EVEN AND UNLABORED. IV ACCESS ON LAC G#20 INTACT WITH IVF OF LR @75 ML/HR INFUSING WELL, NO S/S OF INFILTRATION AT SITE . PT TURNED AND REPOSITIONED Q 2HRS AND PRN. KEEP PT CLEAN, DRY AND COMFORTABLE AT ALL TIMES. ALL NEEDS AND CARE ATTENDED. SAFETY MEASURES KEPT IN PLACE; BED IN LOWEST LOCKED POSITION, HOB KEPT ELEVATED, SIDE-RAILS UP X2 AND CALL LIGHT W/IN EASY REACH OF PT. WILL ENDORSED JOEL TO CLOTH WORKER NURSE.
--- NOTE | 2021-06-19 19:22 | NUR ---
RN NOTES PT C/O ACHING AND THROBBING LEFT HIP PAIN, 10/10 SCALE, PRN MORPHINE 4MG IVP ADMINISTERED AT 1644. WILL CONTINUE TO MONITOR AND REASSESS PT
[2021-06-19 20:00] VITALS: BP 116/62
[2021-06-19] MEDS: SIMVASTATIN 10 MG TABLET PO SCH (21:39)
--- NOTE | 2021-06-19 22:00 | NUR ---
RN NOTES RECEIVED PATIENT IN BED, ALERT/ORIENTED X3, STABLE ON ROOM AIR, S/P LEFT HIP IM RODDING 06/16/21, LEFT HIP, THIGH DRESSING X3, DRY AND INTACT, DENIES NUMBNESS OF BLE, LR AT 75 ML/HR, KEPT SAFE, WILL CONTINUE TO MONITOR.
[2021-06-20] MEDS: IV LR 1000 ML 1,000 ML IV PRN ×2 (04:30→17:56)
[2021-06-20] MEDS: BLOOD SUGAR DIAGNOSTIC 1 EACH STRIP IN SCH ×4 (06:40→22:47)
[2021-06-20 06:42] LABS: BASOPHILS % (AUTO) 0.6 % (0.0-2.0); EOSINOPHILS % (AUTO) 4.4 % (0.0-6.0); HEMATOCRIT 26 % (33-45); HEMOGLOBIN 8.9 g/dL (11.5-14.8); LYMPHOCYTES # (AUTO) 1.7 K/uL (0.8-4.8); LYMPHOCYTES % (AUTO) 25.5 % (20.0-44.0); MEAN CORPUSCULAR HGB CONC 34 g/dl (31.0-36.0); MEAN CORPUSCULAR VOLUME 98 fL (82-100); MONOCYTES # (AUTO) 0.8 K/uL (0.1-1.30); MONOCYTES % (AUTO) 11.2 % (2.0-12.0); NEUTROPHILS # (AUTO) 3.9 K/uL (1.8-8.9); NEUTROPHILS % (AUTO) 58.3 % (43.0-81.0); PLATELET COUNT (AUTO) 191 K/uL (150-450); RED BLOOD CELL COUNT(AUTO) 2.68 MIL/uL (4.0-5.2); WHITE BLOOD COUNT (AUTO) 6.7 K/uL (4.3-11.0)
[2021-06-20] MEDS: CARBIDOPA/LEVODOPA 25/100 MG 1 UDTAB PO SCH ×4 (06:46→22:01)
[2021-06-20] MEDS: INSULIN REGULAR, HUMAN 100 UNIT/ML 3 ML VIAL SQ PRN ×4 (06:51→22:48)
--- NOTE | 2021-06-20 07:25 | NUR ---
Alert/oriented x4, room air, pain managed by Morphine 4 mg IV, left leg incision dressing x3, dry and intact, denies numbness, encourage to perform dorsiflexion and plantarflexsion, incontinent of bowel and bladder. Zguard applied to buttocks, continue accucheck and sliding scale, pain management, DVT PPX of Lovenox or Xarelto when hgb stable, out of bed QID or TID minimum, MD to perform first dressing change, discharge planning to SNF vs ARU
--- NOTE | 2021-06-20 07:42 | NUR ---
RN OPENING NOTES PATIENT IS AWAKE IN BED RESTING, A/O X3. NO S/S OF PAIN NOTED AT THIS TIME. ON ROOM AIR, NO DISTRESS OR SHORTNESS OF BREATH NOTED. IV ACCESS L HAND #20G, INTACT AND PATENT, FLUSHING WELL. FALL AND SAFETY MEASURES IN PLACE, BED ALARM ON, BED IN LOW AND LOCK POSITION, CALL LIGHT AND TABLE WITHIN EASY REACH, SIDE RAIL UP X2. WILL CONTINUE TO MONITOR.
[2021-06-20 07:46] LABS: ALANINE AMINOTRANSFERASE < 6 U/L (12-78); ALKALINE PHOSPHATASE 44 U/L (46-116); ASPARTATE AMINOTRANSFERASE 23 U/L (15-37); BILIRUBIN,TOTAL 0.6 mg/dL (0.2-1.0); CALCIUM, SERUM 8.7 mg/dL (8.5-10.1); CARBON DIOXIDE 26 mmol/L (21-32); CHLORIDE 103 mmol/L (98-107); CREATININE 0.7 mg/dL (0.6-1.3); GLUCOSE 109 mg/dL (74-106); MAGNESIUM 1.9 mg/dL (1.8-2.4); PHOSPHORUS 2.8 mg/dL (2.5-4.9); SODIUM SERUM 138 mmol/L (136-145); TOTAL PROTEIN, SERUM 5.2 g/dL (6.4-8.2); UREA NITROGEN, BLOOD 15 mg/dL (7-18)
[2021-06-20 08:16] VITALS: BP 137/59
[2021-06-20] MEDS: ZINC SULFATE 220 MG CAPSULE PO SCH (08:53)
[2021-06-20] MEDS: CALCIUM CITRATE(CITRACAL) /VITAMIN D 1 TAB TABLET PO SCH (08:53)
[2021-06-20] MEDS: PANTOPRAZOLE 40 MG TABLET.DR PO SCH (08:53)
[2021-06-20] MEDS: TERBINAFINE HCL 250 MG TABLET PO SCH (08:53)
[2021-06-20] MEDS: DOCUSATE SODIUM LIQ 100 MG/10 ML UDC NG SCH (08:53)
[2021-06-20] MEDS: GLUCERNA SHAKE 237 ML CAN PO SCH ×3 (08:54→17:40)
[2021-06-20] MEDS: MORPHINE SULFATE INJ 2 MG/ML DISP.SYRIN IV PRN ×3 (10:21→21:57)
[2021-06-20] MEDS: ENOXAPARIN SODIUM 30 MG/0.3 ML DISP.SYRIN SQ SCH (13:18)
[2021-06-20] MEDS: SOD FERRIC GLUC 125 MG in IV NS 0.9% 100 ML IV SCH (15:34)
[2021-06-20 16:31] VITALS: BP 122/56
--- NOTE | 2021-06-20 19:13 | NUR ---
RN CLOSING NOTES PATIENT IS AWAKE IN BED RESTING, A/O X3. NO S/S OF PAIN NOTED AT THIS TIME. ON ROOM AIR, NO DISTRESS OR SHORTNESS OF BREATH NOTED. IV ACCESS L HAND #20G, INTACT AND PATENT, FLUSHING WELL. FALL AND SAFETY MEASURES IN PLACE, BED ALARM ON, BED IN LOW AND LOCK POSITION, CALL LIGHT AND TABLE WITHIN EASY REACH, SIDE RAIL UP X2. WILL ENDORSE TO ORDER ENTRY REPRESENTATIVE.
--- NOTE | 2021-06-20 19:20 | NUR ---
RN OPENING NOTES: RECEIVED REPORT AT PATIENT'S BEDSIDE. PATIENT IN NAD AND VSS AT THIS TIME. PATIENT IN COMMUNICATIVE, MENTATION TO BASELINE. DAUGHTER ALSO AT BEDSIDE VISITING. DENIES PAIN AT THIS TIME. TODAY'S HGB 8.9. L HIP WITH 3 INCISION SITES COVERED WITH DRESSING. DRESSINGS ARE C/D/I. EASILY PALPABLE DP PULSES BILATERALLY AND CAP REFILL <2 SECONDS. DENIES NUMBNESS/TINGLING. PATIENT VERBALIZES UNDERSTANDING OF HIP PRECAUTIONS. BED IN LOW/LOCKED POSITION. SIDE RAILS UP X2. HOB IN SEMI-FOWLERS POSITION. PATIENT DEMONSTRATES ABILITY TO USE CALL LIGHT AND VERBALIZE NEEDS EFFECTIVELY. CALL LIGHT AND FREQUENTLY USED ITEMS WITHIN REACH.
[2021-06-20 20:00] VITALS: BP 118/57
[2021-06-20] MEDS: SIMVASTATIN 10 MG TABLET PO SCH (22:02)
[2021-06-21] MEDS: CARBIDOPA/LEVODOPA 25/100 MG 1 UDTAB PO SCH ×4 (06:15→22:41)
[2021-06-21] MEDS: IV LR 1000 ML 1,000 ML IV PRN (06:16)
[2021-06-21] MEDS: MORPHINE SULFATE INJ 2 MG/ML DISP.SYRIN IV PRN (06:29)
[2021-06-21] MEDS: BLOOD SUGAR DIAGNOSTIC 1 EACH STRIP IN SCH ×4 (06:29→23:54)
[2021-06-21] MEDS: PANTOPRAZOLE 40 MG TABLET.DR PO SCH (06:38)
[2021-06-21] MEDS: INSULIN REGULAR, HUMAN 100 UNIT/ML 3 ML VIAL SQ PRN (06:41)
--- NOTE | 2021-06-21 07:10 | NUR ---
MS RN CLOSING NOTES: REPORTED OFF TO AM RN. PATIENT IN NAD AND VSS AT THIS TIME. PATIENT IS COMMUNICATIVE, MENTATION TO BASELINE. PATIENT MEDICATED WITH MORPHINE 4MG IVP X2 PER PRN ORDER. L HIP WITH 3 INCISION SITES COVERED WITH DRESSING. DRESSINGS ARE C/D/I. EASILY PALPABLE DP PULSES BILATERALLY AND CAP REFILL <2 SECONDS. DENIES NUMBNESS/TINGLING. L HAND #20 GAUGE RUNNING LR @ 75ML/HR WITHOUT COMPLICATION. NO DISCOMFORT TO IV SITE. NO ERYTHEMA/INFILTRATION TO/SURROUNDING IV INSERTION SITE. DRESSING C/D/I. PATIENT VERBALIZES UNDERSTANDING OF HIP PRECAUTIONS. BED IN LOW/LOCKED POSITION. SIDE RAILS UP X2. HOB IN SEMI-FOWLERS POSITION. PATIENT HAD LARGE INCONTINENT URINE VOIDS THIS SHIFT. PATIENT DEMONSTRATES ABILITY TO USE CALL LIGHT AND VERBALIZE NEEDS EFFECTIVELY. CALL LIGHT AND FREQUENTLY USED ITEMS WITHIN REACH.
--- NOTE | 2021-06-21 07:30 | NUR ---
RN OPENING NOTES RECEIVED PATIENT IN BED, AWAKE, A/O X3. NO S/SX OF RESPIRATORY DISTRESS NOTED. NO PAIN VERBALIZED AT THIS TIME. L HIP WITH 3 INCISION SITES COVERED WITH DRESSING. DRESSINGS ARE C/D/I. DENIES NUMBNESS/TINGLING. CAP REFILL BILATERAL LE < 3 SECONDS. BED WHEELS LOCKED AND IN LOWEST POSITION. SIDE RAILS UP X2. HOB IN SEMI-FOWLERS POSITION AND CALL LIGHT WITHIN REACH. WILL CONTINUE TO MONITOR PATIENT
[2021-06-21 08:08] LABS: BASOPHILS % (AUTO) 0.6 % (0.0-2.0); HEMATOCRIT 26 % (33-45); HEMOGLOBIN 9.1 g/dL (11.5-14.8); LYMPHOCYTES # (AUTO) 1.4 K/uL (0.8-4.8); LYMPHOCYTES % (AUTO) 22.5 % (20.0-44.0); MEAN CORPUSCULAR HGB CONC 34 g/dl (31.0-36.0); MEAN CORPUSCULAR VOLUME 99 fL (82-100); MONOCYTES # (AUTO) 0.8 K/uL (0.1-1.30); NEUTROPHILS # (AUTO) 3.7 K/uL (1.8-8.9); NEUTROPHILS % (AUTO) 59.9 % (43.0-81.0); PLATELET COUNT (AUTO) 240 K/uL (150-450); RED BLOOD CELL COUNT(AUTO) 2.68 MIL/uL (4.0-5.2); WHITE BLOOD COUNT (AUTO) 6.2 K/uL (4.3-11.0)
[2021-06-21 08:34] VITALS: BP 117/54
[2021-06-21] MEDS: DOCUSATE SODIUM LIQ 100 MG/10 ML UDC NG SCH (08:36)
[2021-06-21] MEDS: ZINC SULFATE 220 MG CAPSULE PO SCH (08:36)
[2021-06-21] MEDS: CALCIUM CITRATE(CITRACAL) /VITAMIN D 1 TAB TABLET PO SCH (08:37)
[2021-06-21] MEDS: TERBINAFINE HCL 250 MG TABLET PO SCH (08:40)
[2021-06-21] MEDS: GLUCERNA SHAKE 237 ML CAN PO SCH ×3 (08:52→16:39)
[2021-06-21] MEDS: ENOXAPARIN SODIUM 30 MG/0.3 ML DISP.SYRIN SQ SCH ×2 (11:30→13:25)
[2021-06-21] MEDS: SOD FERRIC GLUC 125 MG in IV NS 0.9% 100 ML IV SCH (15:09)
[2021-06-21 15:47] VITALS: BP 145/71
--- NOTE | 2021-06-21 18:45 | NUR ---
RN CLOSING NOTES PATIENT IN BED WITH EYES CLOSED, ABLE TO BE WAKEN. NO S/SX OF RESPIRATORY DISTRESS NOTED. L HIP WITH 3 INCISION SITES COVERED WITH DRESSING. DRESSINGS ARE C/D/I. NO S/SX OF INFECTION NOTED THROUGHOUT SHIFT. PATIENT IS WAITING FOR A BED TO OPEN UP AT AN ARU FOR JOEL. DISCHARGE ORDER IS PLACED. ALL ORDERS CARRIED OUT AND ALL NEEDS MET. BED WHEELS LOCKED AND IN LOWEST POSITION. SIDE RAILS UP X2. HOB IN SEMI-FOWLERS POSITION AND CALL LIGHT WITHIN REACH. WILL ENDORSE TO SEAMING MACHINE OPERATOR NURSE FOR JOEL
--- NOTE | 2021-06-21 19:30 | NUR ---
MSRN ASLEEP AT THIS TIME. APPEARS COMFORTABLE.. PRESENT IVF LR AT 75CC/HR INFUSING WELL VIA LEFT HAND. PENDING BED AVAILABILITY AT ARU.
[2021-06-21 21:14] VITALS: BP 143/70
[2021-06-21] MEDS: SIMVASTATIN 10 MG TABLET PO SCH (22:40)
[2021-06-22] MEDS: IV LR 1000 ML 1,000 ML IV PRN (02:49)
--- NOTE | 2021-06-22 06:30 | NUR ---
msrn verbalizes severe left hip, morphine 4mg ivp administered. positioned for comfort.
[2021-06-22 06:33] LABS: BASOPHILS % (AUTO) 0.7 % (0.0-2.0); EOSINOPHILS % (AUTO) 2.6 % (0.0-6.0); HEMATOCRIT 29 % (33-45); LYMPHOCYTES # (AUTO) 1.4 K/uL (0.8-4.8); MEAN CORPUSCULAR HGB CONC 34 g/dl (31.0-36.0); MEAN CORPUSCULAR VOLUME 99 fL (82-100); MONOCYTES # (AUTO) 0.6 K/uL (0.1-1.30); MONOCYTES % (AUTO) 10.2 % (2.0-12.0); NEUTROPHILS # (AUTO) 4.1 K/uL (1.8-8.9); NEUTROPHILS % (AUTO) 64.5 % (43.0-81.0); PLATELET COUNT (AUTO) 294 K/uL (150-450); RED BLOOD CELL COUNT(AUTO) 2.96 MIL/uL (4.0-5.2); WHITE BLOOD COUNT (AUTO) 6.3 K/uL (4.3-11.0)
[2021-06-22] MEDS: MORPHINE SULFATE INJ 2 MG/ML DISP.SYRIN IV PRN (06:42)
[2021-06-22] MEDS: CARBIDOPA/LEVODOPA 25/100 MG 1 UDTAB PO SCH ×3 (06:44→17:20)
[2021-06-22] MEDS: BLOOD SUGAR DIAGNOSTIC 1 EACH STRIP IN SCH ×3 (07:25→17:12)
--- NOTE | 2021-06-22 07:35 | NUR ---
MS RN OPENING NOTES RECEIVED PATIENT IN BED, SLEEP. PATIENT ON ROOM AIR; BREATHING EVEN AND UNLABORED. NO S/S OF DISTRESS NOTED. WILL CONTINUE TO MONITOR PATIENT.
[2021-06-22 08:25] VITALS: BP 144/70
[2021-06-22] MEDS: GLUCERNA SHAKE 237 ML CAN PO SCH ×3 (08:54→17:21)
[2021-06-22] MEDS: CALCIUM CITRATE(CITRACAL) /VITAMIN D 1 TAB TABLET PO SCH (08:54)
[2021-06-22] MEDS: DOCUSATE SODIUM LIQ 100 MG/10 ML UDC NG SCH (08:54)
[2021-06-22] MEDS: ZINC SULFATE 220 MG CAPSULE PO SCH (08:55)
[2021-06-22] MEDS: TERBINAFINE HCL 250 MG TABLET PO SCH (08:55)
[2021-06-22] MEDS: PANTOPRAZOLE 40 MG TABLET.DR PO SCH (08:55)
[2021-06-22] MEDS: ENOXAPARIN SODIUM 30 MG/0.3 ML DISP.SYRIN SQ SCH (10:35)
[2021-06-22] MEDS ORDERED: MAGNESIUM HYDROXIDE 30 ML UDC PO ONE (11:00)
[2021-06-22] MEDS ORDERED: TEMA15CA5 PO (11:18)
[2021-06-22] MEDS ORDERED: SENN-175 PO (11:18)
[2021-06-22] MEDS ORDERED: NUT.237L45 PO (11:18)
[2021-06-22] MEDS ORDERED: MAGN400O6 PO (11:18)
[2021-06-22] MEDS ORDERED: DOCU50LI PO (11:18)
[2021-06-22] MEDS ORDERED: INSU100V28 SQ (11:18)
[2021-06-22] MEDS ORDERED: HYDR-3980 PO (11:18)
[2021-06-22] MEDS ORDERED: Blood Sugar Diagnostic IN (11:18)
[2021-06-22] MEDS ORDERED: PANT40TA49 PO (11:18)
[2021-06-22] MEDS ORDERED: RIVA10TA PO (11:22)
[2021-06-22] MEDS ORDERED: HYDROCODONE/APAP 10/325MG TABLET PO PRN (11:30)
[2021-06-22 16:05] VITALS: BP 110/58
[2021-06-22] MEDS ORDERED: MORPHINE SULFATE INJ 2 MG/ML DISP.SYRIN IV PRN (17:00)
--- NOTE | 2021-06-22 19:06 | NUR ---
MS RN CLOSING NOTES PATIENT REMAINS IN BED, AWAKE, AWAITS AMBULANCE DRY ROLLER FOR DC. ALL PAPERWORK READY AND SIGNED BY FAMILY. PATIENT ON ROOM AIR; BREATHING EVEN AND UNLABORED. NO S/S OF DISTRESS NOTED. WILL ENDORSE TO CAN[employer] FIRE DIRECTION SPECIALIST NURSE.
--- NOTE | 2021-06-22 20:10 | NUR ---
ms rn notes pt picked up via ambulance with two research environmental engineer. pt vitals within normal limits no pain or discomfort at this time. paperwork given to research environmental engineer.
[2021-06-22] MEDS ORDERED: SENNOSIDES 8.6 MG TABLET PO SCH (22:00)
== END 2021-06-22 20:10 | DRG 482 ==
LOC: ER 17:46 → MED 20:25
PROVIDERS: ADMIT Nurse Practitioner Acute Care; ATTEND Nurse Practitioner Acute Care
PROC: 0QS706Z Reposition Left Upper Femur with Intramedullary Internal Fixation Device, Open Approach (ICD-10-PCS; principal; 2021-06-16)
PROC: 30233N1 Transfusion of Nonautologous Red Blood Cells into Peripheral Vein, Percutaneous Approach (ICD-10-PCS; 2021-06-16)
DX: S72.142A Displaced intertrochanteric fracture of left femur, initial encounter for closed fracture (principal); I10 Essential (primary) hypertension; Y92.000 Kitchen of unspecified non-institutional (private) residence as the place of occurrence of the external cause; E11.9 Type 2 diabetes mellitus without complications; E78.00 Pure hypercholesterolemia, unspecified; G20 Parkinson's disease; W01.0XXA Fall on same level from slipping, tripping and stumbling without subsequent striking against object, initial encounter; Z90.49 Acquired absence of other specified parts of digestive tract; R26.9 Unspecified abnormalities of gait and mobility; Z79.84 Long term (current) use of oral hypoglycemic drugs; Z88.1 Allergy status to other antibiotic agents; Z79.899 Other long term (current) drug therapy; E78.5 Hyperlipidemia, unspecified; I49.9 Cardiac arrhythmia, unspecified; R79.89 Other specified abnormal findings of blood chemistry
CPT/HCPCS: 36415; 71045-TC; 73020; 73502; 73552; 73564-TC; 80048-TC; 80053-TC; 80061-TC; 81001; 82962-TC; 83735-TC; 84100-TC; 84443-TC; 85025-TC; 85027-TC; 85610-TC; 85730-TC; 86850-TC; 87081-TC; 93307-TC; 97110-TC; 97112-TC; 97116-TC; 97530-TC; 97535-TC; A4217; A4623; A6209; A6253; A6403; C1713; C9113; G0378; J0330; J0690; J0885; J1100; J1170; J1650; J1815; J1885; J2270; J2405; J2704; J2916; J3370; J3490; J7030; J7040; J7050; J7060; J7120; P9016